=== PATIENT | female | born 1990 | race Caucasian/White ===

== ENCOUNTER → 2020-10-14 15:01 | Outpatient (CLI) | payer OTHER, SELFPAY ==
[2017-04-27 10:33] VITALS: BMI 28.6
[2020-10-14 17:59] LABS: hCG Titer Quant., Serum 7 mIU/mL (1-3)
== END ==
PROVIDERS: Referring Provider Obstetrics & Gynecology; Visit Provider Obstetrics & Gynecology
DX: O46.90 Antepartum hemorrhage, unspecified, unspecified trimester (principal); Z3A.00 Weeks of gestation of pregnancy not specified
CPT/HCPCS: 36415; 84702; 86850; 86900; 86901

== ENCOUNTER → 2020-10-16 15:19 | Outpatient (CLI) | payer OTHER, SELFPAY ==
[2017-04-27 10:33] VITALS: BMI 28.6
[2020-10-16 16:36] LABS: hCG Titer Quant., Serum 3 mIU/mL (1-3)
== END ==
PROVIDERS: Referring Provider Obstetrics & Gynecology; Visit Provider Obstetrics & Gynecology
DX: O46.90 Antepartum hemorrhage, unspecified, unspecified trimester (principal); Z3A.00 Weeks of gestation of pregnancy not specified
CPT/HCPCS: 36415; 84702

== ENCOUNTER → 2020-11-23 10:47 | Outpatient (CLI) | payer OTHER, SELFPAY ==
[2017-04-27 10:33] VITALS: BMI 28.6
[2020-11-23 12:12] LABS: hCG Titer Quant., Serum 10105 mIU/mL (1-3)
== END ==
PROVIDERS: Referring Provider Obstetrics & Gynecology; Visit Provider Obstetrics & Gynecology
DX: N91.2 Amenorrhea, unspecified (principal)
CPT/HCPCS: 36415; 84702

== ENCOUNTER → 2020-11-25 10:35 | Outpatient (CLI) | payer OTHER, SELFPAY ==
[2017-04-27 10:33] VITALS: BMI 28.6
[2020-11-25 12:38] LABS: hCG Titer Quant., Serum 14625 mIU/mL (1-3)
== END ==
PROVIDERS: Obstetrics & Gynecology; Referring Provider Obstetrics & Gynecology; Visit Provider Obstetrics & Gynecology
DX: O20.0 Threatened abortion (principal)
CPT/HCPCS: 36415; 84702

== ENCOUNTER → 2020-11-26 16:40 | Outpatient (CLI) | payer OTHER, SELFPAY ==
--- NOTE | 2020-11-26 16:45 | US_ITS ---
INDICATION: Early ultrasound . COMPARISON: None. TECHNIQUE: Transabdominal and transvaginal scanning was performed with grayscale and color Doppler imaging. FINDINGS: Uterus: Measures 9.7 x 6.3 x 5.6 cm. No uterine leiomyomas are identified. Endometrium: A feeding gestational sac is identified which appears to contain a pole and yolk sac the mean sac diameter is 1.68 cm corresponding to gestational age of 6 weeks 3 days. A pole is identified measuring 0.46 cm in size corresponding to a gestational age of 6 weeks 2 days and cardiac activity is identified of the 125 bpm. Right ovary measures 3.8 x 3.4 x 3 point cm. No right ovarian or adnexal masses are identified. Left ovary is not visualized. Free fluid: None. The gestational age based upon the patient''s given LMP is unknown. US/Init OB < 14Wks US IMPRESSION: A viable intrauterine gestation is identified with a gestational age of 6 weeks 2 days based upon crown-rump measurements, with an estimated due date of 07/20/2021 Electronically Signed: Michael Franco DO at 12:34 EDT Tel , Service support ,
== END ==
PROVIDERS: Referring Provider Obstetrics & Gynecology; Visit Provider Obstetrics & Gynecology
DX: O26.841 Uterine size-date discrepancy, first trimester (principal); N91.2 Amenorrhea, unspecified; Z3A.01 Less than 8 weeks gestation of pregnancy
CPT/HCPCS: 76801

== ENCOUNTER → 2021-01-01 09:49 | Outpatient (CLI) | payer OTHER, SELFPAY ==
[2021-01-01 10:20] LABS: Absolute Lymphocyte Count 2.12 X10^3/uL (0.83-4.51); Absolute Neutrophil Count 6.2 X10^3/uL (2.0-7.7); Basophil# 0.04 X10^3/uL; Basophil% 0.4 % (0-1); Eosinophil# 0.07 X10^3/uL; Eosinophils% 0.8 % (0-5); Hematocrit 39.4 % (37-47); Hemoglobin 13.6 g/dL (12.0-15.0); Lymphocyte # 2.12 X10^3/ul (0.83-4.51); Lymphocyte % 23.7 % (19-41); Mean Corp Hgb Conc 34.5 g/dL (32-36); Mean Corpuscular Hgb 29.8 pg (27.0-32.0); Mean Corpuscular Volume 86.2 fL (81-99); Monocyte# 0.45 X10^3/uL; NRBC Flagged by Analyzer 0 % (0-5); Neutrophil # 6.22 X10^3/uL (2.7-7.7); Neutrophil % 69.7 % (47-70); Platelet Count 284 K/mm3 (150-450); RBC Distribution Width CV 12.7 % (11.6-14.6); RBC Distribution Width SD 39.8 fl (35.1-43.9); Red Blood Count 4.57 M/mm3 (4.2-5.4); White Blood Count 8.9 K/mm3 (4.4-11.0)
[2021-01-01 11:05] LABS: NATERA MAILED SPECIMEN
[2021-01-01 11:50] LABS: HIV - WCH Non-Reactive (Nonreactive); Hepatitis B Surface Antigen Non-Reactive (Nonreactive); Hepatitis C Antibody Non-Reactive (Nonreactive); Rubella IgG Reactive (Nonreactive); Syphilis Antibodies Non-reactive
[2021-01-01 17:01] LABS: Amphetamine Urine VISTA NEGATIVE (<1000 ng/mL); Barbiturate Urine VISTA NEGATIVE (< 200 ng/mL); Benzodiazepine Urine VISTA NEGATIVE (< 200 ng/mL); Cocaine Urine VISTA NEGATIVE (< 300 ng/mL); Ecstacy Urine VISTA NEGATIVE (< 500 ng/mL); Methadone Urine VISTA NEGATIVE (< 300 ng/mL); PCP Urine VISTA NEGATIVE (< 25 ng/mL); THC Urine VISTA NEGATIVE (< 50 ng/mL); Vista UDS pH Range 6
[2021-01-04 03:07] LABS: Chlamydia By Nucleic Acid AMP Negative (Negative)
[2021-01-04 14:34] LABS: Gonococcus By Nucleic Acid AMP Negative (Negative)
[2021-01-10 20:30] LABS: HPV Reflexed? NOT INDICATED
== END ==
PROVIDERS: Referring Provider Nurse Practitioner Women's Health; Visit Provider Nurse Practitioner Women's Health
DX: Z34.81 Encounter for supervision of other normal pregnancy, first trimester (principal); Z31.430 Encounter of female for testing for genetic disease carrier status for procreative management
CPT/HCPCS: 36415; 80307; 85025; 86703; 86762; 86780; 86803; 86850; 86900; 86901; 87086; 87340; 87491; 87591; 88175; G0145

== ENCOUNTER → 2021-03-07 13:16 | Outpatient (CLI) | payer OTHER, SELFPAY ==
--- NOTE | 2021-03-07 13:21 | US_ITS ---
STUDY: SECOND AND THIRD TRIMESTER OBSTETRICAL ULTRASOUND REASON FOR EXAM: Female, 31 years old . Follow-up examination. LMP: 10/13/2020. TECHNIQUE: Transabdominal and Transvaginal TECHNICAL QUALITY: Adequate. PRIOR ULTRASOUND: Comparison is made with prior study dated 11/26/2020. FINDINGS: There is a single intrauterine fetus. The fetus is in a breech presentation. There is demonstrated cardiac activity with a heart rate of 162 bpm. There is a normal amniotic fluid volume. The largest amniotic fluid pocket measures 4.4 cm x 7 cm. The amniotic fluid index (ANN) is within normal limits. The placenta is posterior in location and is not low lying. There are Grade 1 placental changes. The cervix measures 4 cm in length. The bilateral adnexal regions are normal. BIOMETRY: BPD: 4.9 cm: 20 weeks, 6 days HC: 18.4 cm: 20 weeks, 5 days AC: 16.1 cm: 21 weeks, 1 days FL: 3.5 cm: 20 weeks, 0 days CI: 79% FL/BPD: 71% FL/HC: FL/AC: 22% HC/AC: 1.14 age by current US: 20 weeks, 6 days. CHUCHO by current US: 07/19/2021. Estimated weight: 400 grams, +/- 60 grams, 66 %. age by prior US: 20 weeks, 5 days. CHUCHO by prior US: 07/20/2021. Age by LMP: 20 weeks, 5 days. CHUCHO by LMP: 07/20/2021. ANATOMY: Gender: Cranium: Normal lateral ventricles. There is evidence of a left choroid plexus cyst measuring 4 mm. Normal cerebellum. Normal cisterna magna. Normal face, nose and lips. Chest: Normal 4-chamber heart. Abdomen/Pelvis: Normal diaphragm. Normal stomach. Normal abdominal wall. Normal cord insertion. Normal 3 vessel cord. Normal kidneys. Normal bladder. Spine: Normal cervical spine. Normal thoracic spine. Normal lumbar spine. Normal sacrum. Extremities: Normal bilateral upper extremities. Normal bilateral lower extremities. IMPRESSION: Single live intrauterine gestation with mean gestational age of 20 weeks and 5 days. The measurements obtained today following the normal expected range. 4 mm left choroid plexus cyst. Electronically Signed: Pranay Lubin MD at 8:19 EST , Service support , STUDY: FIRST TRIMESTER OBSTETRICAL ULTRASOUND REASON FOR EXAM: Female, 31 years old . Cervical length measurement. LMP: 10/13/2020. TECHNIQUE: Transvaginal TECHNICAL QUALITY: Adequate. PRIOR ULTRASOUND: None. FINDINGS: Cervical length measures 4 cm US/OB Anatomy Scan IMPRESSION: Cervical length measures 4 cm. Electronically Signed: Pranay Lubin MD at 8:20 EST , Service support ,
--- NOTE | 2021-03-07 13:21 | US_ITS ---
STUDY: SECOND AND THIRD TRIMESTER OBSTETRICAL ULTRASOUND REASON FOR EXAM: Female, 31 years old . Follow-up examination. LMP: 10/13/2020. TECHNIQUE: Transabdominal and Transvaginal TECHNICAL QUALITY: Adequate. PRIOR ULTRASOUND: Comparison is made with prior study dated 11/26/2020. FINDINGS: There is a single intrauterine fetus. The fetus is in a breech presentation. There is demonstrated cardiac activity with a heart rate of 162 bpm. There is a normal amniotic fluid volume. The largest amniotic fluid pocket measures 4.4 cm x 7 cm. The amniotic fluid index (ANN) is within normal limits. The placenta is posterior in location and is not low lying. There are Grade 1 placental changes. The cervix measures 4 cm in length. The bilateral adnexal regions are normal. BIOMETRY: BPD: 4.9 cm: 20 weeks, 6 days HC: 18.4 cm: 20 weeks, 5 days AC: 16.1 cm: 21 weeks, 1 days FL: 3.5 cm: 20 weeks, 0 days CI: 79% FL/BPD: 71% FL/HC: FL/AC: 22% HC/AC: 1.14 age by current US: 20 weeks, 6 days. CHUCHO by current US: 07/19/2021. Estimated weight: 400 grams, +/- 60 grams, 66 %. age by prior US: 20 weeks, 5 days. CHUCHO by prior US: 07/20/2021. Age by LMP: 20 weeks, 5 days. CHUCHO by LMP: 07/20/2021. ANATOMY: Gender: Cranium: Normal lateral ventricles. There is evidence of a left choroid plexus cyst measuring 4 mm. Normal cerebellum. Normal cisterna magna. Normal face, nose and lips. Chest: Normal 4-chamber heart. Abdomen/Pelvis: Normal diaphragm. Normal stomach. Normal abdominal wall. Normal cord insertion. Normal 3 vessel cord. Normal kidneys. Normal bladder. Spine: Normal cervical spine. Normal thoracic spine. Normal lumbar spine. Normal sacrum. Extremities: Normal bilateral upper extremities. Normal bilateral lower extremities. IMPRESSION: Single live intrauterine gestation with mean gestational age of 20 weeks and 5 days. The measurements obtained today following the normal expected range. 4 mm left choroid plexus cyst. Electronically Signed: Pranay Lubin MD at 8:19 EST , Service support , STUDY: FIRST TRIMESTER OBSTETRICAL ULTRASOUND REASON FOR EXAM: Female, 31 years old . Cervical length measurement. LMP: 10/13/2020. TECHNIQUE: Transvaginal TECHNICAL QUALITY: Adequate. PRIOR ULTRASOUND: None. FINDINGS: Cervical length measures 4 cm US/Transvaginal w/Preg US IMPRESSION: Cervical length measures 4 cm. Electronically Signed: Pranay Lubin MD at 8:20 EST , Service support ,
== END ==
PROVIDERS: Referring Provider Obstetrics & Gynecology; Visit Provider Obstetrics & Gynecology
DX: Z34.82 Encounter for supervision of other normal pregnancy, second trimester (principal); Z3A.19 19 weeks gestation of pregnancy
CPT/HCPCS: 76805; 76817

== ENCOUNTER 2021-05-09 14:19 | Outpatient (CLI) | payer OTHER, SELFPAY ==
[2021-05-09 15:35] LABS: Absolute Lymphocyte Count 2.46 X10^3/uL (0.83-4.51); Absolute Neutrophil Count 9.5 X10^3/uL (2.0-7.7); Basophil# 0.02 X10^3/uL; Basophil% 0.2 % (0-1); Eosinophils% 0.8 % (0-5); Hemoglobin 10.6 g/dL (12.0-15.0); Lymphocyte # 2.46 X10^3/ul (0.83-4.51); Lymphocyte % 19.4 % (19-41); Mean Corp Hgb Conc 32.1 g/dL (32-36); Mean Corpuscular Hgb 27.5 pg (27.0-32.0); Mean Corpuscular Volume 85.5 fL (81-99); Mean Platelet Vol. 11.5 fl (6.2-12.0); Monocyte# 0.57 X10^3/uL; Monocyte% 4.5 % (0-10); NRBC Flagged by Analyzer 0 % (0-5); Neutrophil # 9.48 X10^3/uL (2.7-7.7); Neutrophil % 74.7 % (47-70); Platelet Count 269 K/mm3 (150-450); RBC Distribution Width CV 12.9 % (11.6-14.6); RBC Distribution Width SD 39.6 fl (35.1-43.9); Red Blood Count 3.86 M/mm3 (4.2-5.4); White Blood Count 12.7 K/mm3 (4.4-11.0)
[2021-05-09 16:00] LABS: Glucose Challenge Gest 1H 50g 146 mg/dL (70-140)
== END 2021-05-09 23:59 | disposition short-term general hospital (02) ==
LOC: LAB 14:21
PROVIDERS: Referring Provider Obstetrics & Gynecology; Visit Provider Obstetrics & Gynecology
DX: Z34.92 Encounter for supervision of normal pregnancy, unspecified, second trimester (principal); Z13.1 Encounter for screening for diabetes mellitus
CPT/HCPCS: 36415; 82950; 85025; 86850; 86900; 86901

== ENCOUNTER 2021-05-16 06:50 | Outpatient (CLI) | payer OTHER, SELFPAY ==
[2021-05-16 07:29] LABS: Glucose GTT-Gestation. Fasting 95 mg/dL (<105)
[2021-05-16 08:29] LABS: Glucose GTT-Gestational 1 Hr 157 mg/dL (<190)
[2021-05-16 09:28] LABS: Glucose GTT-Gestational 2 Hr 132 mg/dL (<165)
[2021-05-16 11:17] LABS: Glucose GTT-Gestational 3 Hr 101 L (<145)
== END 2021-05-16 23:59 | disposition short-term general hospital (02) ==
LOC: LAB 06:51
PROVIDERS: Referring Provider Obstetrics & Gynecology; Visit Provider Obstetrics & Gynecology
DX: O99.810 Abnormal glucose complicating pregnancy (principal); Z3A.00 Weeks of gestation of pregnancy not specified
CPT/HCPCS: 36415; 82951; 82952

== ENCOUNTER 2021-06-27 17:03 | Outpatient (CLI) | payer OTHER, SELFPAY | END 2021-06-27 23:59 | disposition home or self-care (01) | PROVIDERS: Visit Provider Obstetrics & Gynecology | DX: Z34.80 Encounter for supervision of other normal pregnancy, unspecified trimester (principal) | CPT/HCPCS: 87081 ==

== ENCOUNTER 2021-07-07 07:49 | Outpatient (CLI) | payer OTHER, SELFPAY ==
--- NOTE | 2021-07-07 07:51 | US_ITS ---
STUDY: SECOND AND THIRD TRIMESTER OBSTETRICAL ULTRASOUND - LIMITED REASON FOR EXAM: Female, 31 years old. growth PRIOR ULTRASOUND: 03.07.. TECHNIQUE: Transabdominal TECHNICAL QUALITY: Adequate. FINDINGS: There is a single intrauterine fetus. The fetus is in a cephalic presentation. There is demonstrated cardiac activity with a heart rate of 152 bpm. There is a normal amniotic fluid volume. The largest amniotic fluid pocket measures 5.4 cm. The amniotic fluid index (ANN) is 14.6 cm. The placenta is fundal in location. There are Grade 2 placental changes. The cervix is obscured by overlying bowel gas and cannot be identified. . BIOMETRY: BPD: 91 mm: 36 weeks, 5 days HC: 332 mm: 37 weeks, 5 days AC: 367 mm: 40 weeks, 4 days FL: 75 mm: 38 weeks, 2 days CI: 79 FL/AC: 20 FL/BPD: 83 HC/AC: 0.9 age by current US: 38 weeks, 4 days. CHUCHO by current US: 3.24.22. Estimated weight: 3746 grams, +/- 554 grams, 87 %. Age by LMP: 38 weeks, 1 days. CHUCHO by LMP: 3.27.22. ANATOMY: study for growth only. US/OB Limited With Biometrics IMPRESSION: There is a single live intrauterine with a heart rate of 152 bpm. age by current US: 38 weeks, 4 days. CHUCHO by current US: 3.24.22. Estimated weight: 3746 grams, +/- 554 grams, 87 %. EFW is greater than 75%. Large for gestational age (LGA) should be considered. Electronically Signed: Adam Juarez MD at 15:36 EDT ,
== END 2021-07-07 23:59 | disposition home or self-care (01) ==
LOC: OPUS 07:49
PROVIDERS: Visit Provider Obstetrics & Gynecology
DX: O98.519 Other viral diseases complicating pregnancy, unspecified trimester (principal); U07.1 COVID-19
CPT/HCPCS: 76816

== ENCOUNTER 2021-07-19 17:45 | Inpatient (IN) | payer OTHER, SELFPAY ==
[2021-07-19] VITALS (35 sets, daily range): BP systolic 109–163; BP diastolic 64–87; PULSE 75–116; TEMP 36.2–36.6; O2SAT 97–100; BMI 34.2
--- NOTE | 2021-07-19 | IMM_PTH ---
PATIENT: MIGUEL LARA LOC: WP U#:[id number] AGE/SX: 31/F ROOM: WP006 RE07/19/[address]: Dr. Aisha Laguerre MD : 1990 BED: 1 DIS: 07/21/2021 SPEC #: [id number] RECD: 07/22/21 14:40 STATUS: NANDO REQ #: [id number] ANGEL: 07/19/21 00:[address]: Aisha Laguerre DEPT: IMMUNOHISTOCHEMISTRY RECD BY: Krysta Castro ENTERED: 07/22/21 14:41 SP TYPE: IMMUNO OTHR DR: No Primary Care Phys Tissues: Vulva, NOS Procedures: p16 (initial) KI-67 (add) P16 (add) PHYSICIAN & INSTITUTION [place] [id number] SPECIMEN INFORMATION: Tissue Source: Vulvar lesions Clinical Info: Two vulvar lesions Specimen Number: [id number] #1 & 2 CPT code: 46452, 77940 x3 METHODOLOGY: Deparaffinized sections of prefer/formalin-fixed tissue or PAP/DQ stained slides are incubated with monoclonal/polyclonal antibodies/oligonucleotide probes. Localization is made via biotin free immunoperoxidase method. Appropriate controls are performed and reacted as expected. Results on target cell population are indicated in the following table: RESULTS: ANTIBODY / CLONE RESULT Block 1 P16 (E6H4) positive, focal, patchy Ki-67 (30-9) positive, low Block 2 P16 (E6H4) positive, focal, patchy Ki-67 (30-9) positive, low These tests were developed and their performance characteristics determined by [facility]. They may not have been cleared or approved by the U.S. Food and Drug Administration. The FDA has determined that such clearance or approval is not necessary. The above immunohistochemical/dualISH markers are ordered and reviewed by the Pathologist. INTERPRETATION: Vulvar lesions, biopsy: Consistent with condyloma acuminatum. AM:quinn 07/23/2021
[2021-07-19] MEDS: Lactated Ringers 1,000 ML 50 ML IV (18:00)
[2021-07-19] MEDS: Lactated Ringers 500 ML 999 ML IV ×3 (18:15→22:45)
[2021-07-19 18:20] LABS: Absolute Lymphocyte Count 1.96 X10^3/uL (0.83-4.51); Absolute Neutrophil Count 8.5 X10^3/uL (2.0-7.7); Basophil# 0.01 X10^3/uL; Basophil% 0.1 % (0-1); Eosinophil# 0.04 X10^3/uL; Eosinophils% 0.4 % (0-5); Hematocrit 31.7 % (37-47); Hemoglobin 10.2 g/dL (12.0-15.0); Lymphocyte # 1.96 X10^3/ul (0.83-4.51); Lymphocyte % 17.6 % (19-41); Mean Corp Hgb Conc 32.2 g/dL (32-36); Mean Corpuscular Hgb 24.5 pg (27.0-32.0); Mean Platelet Vol. 12.8 fl (6.2-12.0); Monocyte# 0.56 X10^3/uL; NRBC Flagged by Analyzer 0 % (0-5); Neutrophil # 8.53 X10^3/uL (2.7-7.7); Neutrophil % 76.5 % (47-70); Platelet Count 241 K/mm3 (150-450); RBC Distribution Width CV 14.6 % (11.6-14.6); RBC Distribution Width SD 39.8 fl (35.1-43.9); Red Blood Count 4.17 M/mm3 (4.2-5.4); White Blood Count 11.2 K/mm3 (4.4-11.0)
[2021-07-19] MEDS: fentaNYL-bupivacaine (epidural) 100 ML BAG EPIDURAL (19:36)
[2021-07-19] MEDS: 0.9% Saline Lock 10 ML Syringe IV (20:45)
[2021-07-19] MEDS: Ondansetron 4 MG/2 ML Vial IV (20:45)
[2021-07-19] MEDS: Amnioinfusion- 0.9% NS 1,000 ML IV.SOLN. INTRA-UTER (21:14)
--- NOTE | 2021-07-19 23:00 | VUL_PTH ---
PATIENT: MIGUEL LARA LOC: WP U#:[id number] AGE/SX: 31/F ROOM: WP006 RE07/19/[address]: Dr. Aisha Laguerre MD : 1990 BED: 1 DIS: 07/21/2021 SPEC #: [id number] RECD: 07/20/21 00:33 STATUS: NANDO AKASH #: [id number] ANGEL: 07/19/21 23:[address]: Aisha Laguerre DEPT: SURGICAL PATHOLOGY RECD BY: Clinton Torres ENTERED: 07/21/21 08:33 SP TYPE: VULVA BX OTHR DR: No Primary Care Phys Tissues: Vulva, NOS Procedures: Surgery Specimen Level IV HEADER OPERATION: Lesion removal PRE-OP DIAGNOSIS: 5 mm vulvar lesion and 2 cm vulvar lesion TISSUE SUBMITTED: 5 mm vulvar lesion and 2 cm vulvar lesion MICROSCOPIC DIAGNOSIS Vulvar lesions, biopsy: Consistent with fragments of condyloma acuminatum. See comment. AM:quinn 07/22/2021 COMMENT Results from immunohistochemistry ([id number]) for surrogate HPV marker (p16) will be reported separately. Case has been reviewed in consultation with Dr. Koroma who concurs with the above diagnosis. IDC:ABRAHAM MICROSCOPIC DESCRIPTION Slides are reviewed. GROSS DESCRIPTION Received is one container labeled with the patient's name and not further designated. The specimen consists of two polypoid pieces of maynard-brown skin measuring 1.5 x 1.2 x 0.5 cm and 1.2 x 1.2 x 0.6 cm. Both pieces are inked, serially sectioned and submitted entirely in two cassettes with each cassette containing one piece. / ABRAHAM:quinn 07/21/2021 TC:1 CPT: 67990
[2021-07-19] MEDS: Oxytocin 30 units/NS 500 ml 30 UNITS/500 ML IV.SOLN 334 UNITS IV (23:13)
--- NOTE | 2021-07-19 23:21 | HP.PCM.OB_ITS ---
HPI - General General Date of Admission: 07/19/21 HPI Narrative MIGUEL LARA, is a 31 F who presents IAL with SROM regualr ctx clear fluid Maternal Data Information CHUCHO Calculator Estimated Delivery Date Method Current WG Current Estimate 07/20/21 Ultrasound #1 39w 6d PFSH PFSH Medical History Choroid plexus cyst Lab test positive for detection of COVID-19 virus Laceration of right index finger Laceration of right middle finger Laceration of right thumb Home Medications vit,[id number] 1 tab PO DAILY 04/15/14 [History Last Taken 01/09/16] Allergy/AdvReac Type Severity Reaction Status Date / Time No Known Allergies Allergy Verified 07/11/21 14:15 Family History Mother Hypertension Surgical History History of appendectomy Hx of tonsillectomy Social History adopted: No household members: family number of children: 3 current occupational status: employed current occupation: [employer] pets and animals: No Smoking Status: Former smoker alcohol intake: current details: Social substance use type: does not use seatbelt use: always do you feel safe at home: Yes additional social history: - Trip ([place]) History 5 Elective abortions Hx Para 3 Spontaneous abortions 1 Hx # Term Pregnancies Ectopic pregnancies Hx # Pregnancies Multiple births # of living children 3 Past Pregnancies Del. Date Name GA/Weeks Outcome Route Bth Weight Gen Labor Lgth Anesthesia Del Locatn Provider FOB 08/20/11 Anthony 40 live - full term Female epidural [facility] 05/11/14 Jolene 39 live - full term Female epidural [facility] Sharif 01/09/16 Jose L 40 live - full term Male martinur al [facility] Chris Delivery Date: 08/20/11 no complications Ag[facility]a Glez Delivery Date: 05/11/14 no complication Agueda Glez Delivery Date: 01/09/16 no complications Agueda Glez Visit Details Expected Delivery Route/Plan Labor Preferences- labor support person: trip labor intervention preferences: open pain management options preferred: epidural cut cord/dad catch: no : yes PP control planned: sterilized discussed possible routes of delivery and associated risks: special requests: [] Plans Covid status: discussed risks vs. benefits of vaccination, employer mandating vaccination, patient plans to receive once closer to 20 weeks Flu vaccine: declined Tdap vaccine:given Rhogam:na LARC form signed: declined movement and labor precautions reviewed. Problem list reviewed and updated with the most current plan of care details and appropriate orders placed. Relevant counseling for the gestational age provided. Continue routine care and follow up unless otherwise noted in visit notes/problem list details OB Flowsheet Initial Weight: Not Recorded Date -?-?-?-?--?-?-?-?-?-?-?-?- EGA Weight BP Urine Prot -?-?-?-?-?-?-?-?-?-?-?-?- Glucose FHR FuHt Pres Dilation -?-?-?-?-?-?-?-?-?-?-?-?- Effaced St Visit Note 01/01/21 -?-?-?-?-?-?-?-?-?-?-?-?- 11w 3d 182 lb 4 oz 118/80 -?-?-?-?-?-?-?-?-?-?-?-?- 153 -?-?-?-?-?-?-?-?-?-?-?-?- MH-NOB. US per S M: consistent with formal US 07/20/21 01/31/21 -?-?-?-?-?-?-?-?-?-?-?-?- 15w 5d 187 lb 120/80 Negative -?-?-?-?-?-?-?-?-?-?-?-?- Negative 145 -?-?-?-?-?-?-?-?-?-?-?-?- GP - no cramping or bleeding. PRR. Anatomy ordered. Discussed COVID vaccine as employer mandating - patient planning to receive closer to 20 weeks. 02/28/21 -?-?-?-?-?-?-?-?-?-?-?-?- 19w 5d 192 lb -?-?-?-?-?-?-?-?-?-?-?-?- 140 -?-?-?-?-?-?-?-?-?-?-?-?- JV/SM- no lof, v aginal bleeding, or dec fm. No complaints, anatomy scan scheduled. 03/28/21 -?-?-?-?-?-?-?-?-?-?-?-?- 23w 5d 194 lb 4 oz 132/70 Nega tive -?-?-?-?-?-?-?-?-?-?-?-?- Negative 145 24 -?-?-?-?-?-?-?-?-?-?-?-?- SM- no vb lof go od fm no regular ctx 04/24/21 -?-?-?-?-?-?-?-?-?-?-?-?- 27w 4d 196 lb 6 oz 110/80 Nega tive -?-?-?-?-?-?-?-?-?-?-?-?- Negative 140 27 -?-?-?-?-?-?-?-?-?-?-?-?- SM- no vb lof go od fm no reuglar ctx. plan cbc gct next visit. 05/09/21 -?-?-?-?-?-?-?-?-?-?-?-?- 29w 5d 199 lb 2 oz 120/80 120/80 Negative -?-?-?-?-?-?-?-?-?-?-?--?- 1000 g/dL 140 31 -?-?-?-?-?-?-?-?-?-?-?-?- SM- no vb lof go od fm no regular ctx rhogam today 06/06/21 -?-?-?-?-?-?-?-?-?-?-?-?- 33w 5d 203 lb 120/80 Negative -?-?-?-?-?-?-?-?-?-?-?-?- Negative 145 33 -?-?-?-?-?-?-?-?-?-?-?-?- SM- no vb lof go od fm no regular ctx 06/20/21 -?-?-?-?-?-?-?-?-?-?-?-?- 35w 5d 207 lb 4 oz 130/88 Nega tive -?-?-?-?-?-?-?-?-?-?-?-?- Negative -?-?-?-?-?-?-?-?-?-?-?-?- 06/27/21 -?-?-?-?-?-?-?-?-?-?-?-?- 36w 5d 206 lb 2 oz 110/80 Trac e -?-?-?-?-?-?-?-?-?-?-?-?- Negative 140 38 Cephalic 0 -?-?-?-?-?-?-?-?-?-?-?-?- 50 -3 JV- no lof , vaginal bleeding, or dec fm. GBS collected 07/02/21 -?-?-?-?-?-?-?-?-?-?-?-?- 37w 3d 205 lb 8 oz 116/82 Nega tive -?-?-?-?-?-?-?-?-?-?-?-?- Negative 151 38 Cephalic 0 -?-?-?-?-?-?-?-?-?-?-?-?- 50 -2 JV- no lof ,vaginal bleeding, or dec fm. growth scan ordered for this week due to h/o covid in . 07/11/21 -?-?-?-?-?-?-?-?-?-?-?-?- 38w 5d 209 lb 118/80 Negative -?-?-?-?-?-?-?-?-?-?-?-?- Negative 150 40 1 -?-?-?-?-?-?-?-?-?-?-?--?- 50 -2 SM- no vb lof good fm nor euglar ctx 03/24/22 -?-?-?-?-?-?-?-?-?-?-?-?- 39w 4d 211 lb 104/74 104/74 Negative -?-?-?-?-?-?-?-?-?-?-?-?- Negative 140 39 2 -?-?-?-?-?-?-?-?-?-?-?-?- 60 -2 SM- no vb lof good fm no regular ctx membranes swept 07/19/21 -?-?-?-?-?-?-?-?-?-?-?-?- 39w 6d 206 lb 2 oz 163/83 121/77 121/70 136/79 126/79 120/64 125/75 130/77 116/70 121/72 111/66 120/74 111/66 120/87 109/71 -?-?-?-?-?-?-?-?-?-?-?-?- -?-?-?-?-?-?-?-?-?-?-?-?- NST FHR Rate Baby A Baseline: 140 Variability:: Moderate Accelerations:: 15 x 15 Decelerations:: None NST Reactive:: Yes FHR Category:: Category I Uterine Activity:: q3-5 ROS Constitutional Constitutional: Reports systems reviewed and no addt'l complaints, except as documented ENT HEENT: Reports systems reviewed and no addt'l complaints, except as documented Cardiovascular Cardiovascular: Reports systems reviewed and no addt'l complaints, except as documented Respiratory/Chest Respiratory/Chest: Reports systems reviewed and no addt'l complaints, except as documented Gastrointestinal Gastrointestinal: Reports systems reviewed and no addt'l complaints, except as documented and nausea; Denies abdominal pain Genitourinary Genitourinary: Reports systems reviewed and no addt'l complaints, except as documented, contractions Details: present and frequency (regular ) and movement Details: present Musculoskeletal Musculoskeletal: Reports systems reviewed and no addt'l complaints, except as documented Integumentary Integumentary: Reports as per HPI Neurologic Neurologic: Reports systems reviewed and no addt'l complaints, except as documented Endocrine Endocrinology: Reports systems reviewed and no addt'l complaints, except as documented Vital Signs Vital Signs Vital Signs: 07/19/21 18:30 07/19/21 18:32 07/19/21 19:10 Temperature 97.9 F 97.6 F L Temperature Source Temporal Temporal Pulse Rate 94 86 Blood Pressure 163/83 H 121/77 H BP Systolic 163 121 BP Diastolic 83 77 Pulse Ox 99 07/19/21 19:11 07/19/21 19:16 07/19/21 19:21 Temperature Temperature Source Pulse Rate 97 98 99 Blood Pressure 121/70 H BP Systolic 121 BP Diastolic 70 Pulse Ox 100 100 99 07/19/21 19:24 07/19/21 19:26 07/19/21 19:28 Temperature Temperature Source Pulse Rate 110 H 97 102 H Blood Pressure 136/79 H 126/79 H BP Systolic 136 126 BP Diastolic 79 79 Pulse Ox 100 07/19/21 19:31 07/19/21 19:33 07/19/21 19:36 Temperature Temperature Source Pulse Rate 101 H 100 96 Blood Pressure 120/64 BP Systolic 120 BP Diastolic 64 Pulse Ox 97 98 07/19/21 19:37 07/19/21 19:39 07/19/21 19:41 Temperature 97.6 F L Temperature Source Temporal Pulse Rate 101 H 102 H Blood Pressure 125/75 H BP Systolic 125 BP Diastolic 75 Pulse Ox 100 07/19/21 19:43 07/19/21 19:46 07/19/21 19:48 Temperature Temperature Source Pulse Rate 104 H 101 H 99 Blood Pressure 130/77 H 116/70 BP Systolic 130 116 BP Diastolic 77 70 Pulse Ox 99 07/19/21 19:51 07/19/21 19:56 07/19/21 19:59 Temperature Temperature Source Pulse Rate 97 95 93 Blood Pressure 121/72 H BP Systolic 121 BP Diastolic 72 Pulse Ox 100 100 07/19/21 20:01 07/19/21 20:03 07/19/21 20:06 Temperature Temperature Source Pulse Rate 80 75 94 Blood Pressure 111/66 BP Systolic 111 BP Diastolic 66 Pulse Ox 100 100 07/19/21 20:11 07/19/21 20:16 07/19/21 20:21 Temperature Temperature Source Pulse Rate 89 92 81 Blood Pressure BP Systolic BP Diastolic Pulse Ox 100 100 100 07/19/21 20:26 07/19/21 20:31 07/19/21 20:35 Temperature Temperature Source Pulse Rate 87 107 H 75 Blood Pressure 120/74 BP Systolic 120 BP Diastolic 74 Pulse Ox 100 100 07/19/21 21:47 07/19/21 22:19 07/19/21 23:17 Temperature 97.7 F L Temperature Source Temporal Pulse Rate 90 116 H 97 Blood Pressure 111/66 120/87 H 109/71 BP Systolic 111 120 109 BP Diastolic 66 87 71 Pulse Ox Weight Weight: 206 lb 2 oz Body Mass Index (BMI) 34.2 Physical Exam Const alert, oriented x3 and healthy appearing Constitutional Narrative: uncomfortable with contractions HEENT normocephalic and moist oral mucous membranes Head and Scalp: atraumatic Neck full ROM, no lymphadenopathy, supple and thyroid normal General: trachea midline Thyroid: thyroid normal Lymph Lymphatic: no lymphadenopathy noted Chest inspection of chest normal Resp normal respiratory effort Cardio regular rate GI normal to inspection, nondistended, normoactive bowel sounds, soft to palpation and non-tender Inspection: gravid external exam normal Bimanual Exam - Vag & Uterus: uterus non-tender Manual OB Exam: estimated gestational size appropriate, presentation cephalic, dilated, effaced and station Extremity normal to inspection General Extremity: Negative for edema Skin no rashes or lesions noted Neuro deep tendon reflexes 2+ bilaterally Motor Exam: strength 5/5 throughout and clonus absent Psych mental status grossly normal Labs Labs Labs: Blood Type O NEGATIVE Antibody Screen NEGATIVE Hct 31.7 % (37-47) L Hgb 10.2 g/dL (12.0-15.0) L Obstetrics US Syphilis Total Ab Non-reactive Rubella IgG Antibody Reactive (Nonreactive) Hep Bs Antigen Non-Reactive (Nonreactive) Chlamydia DNA (JAYE) Negative (Negative) Neisseria gonorrhoeae DNA (JAYE) Negative (Negative) HIV 1&2 Antibody Non-Reactive (Nonreactive) Glucose 1 Hr 50 gm 146 mg/dL (70-140) H Rhogam given: No Assessment & Plan (1) Abnormal glucose affecting : COMMENT: 3hr GTT needed (2) Choroid plexus cyst: COMMENT: nl genetics no fu indicated (3) Rh negative status during : QUALIFIERS: Trimester: first trimester Qualified Code(s): O26.891 - Other specified related conditions, first trimester; Z67.91 - Unspecified blood type, Rh negative COMMENT: O neg; Rhogam PRN and at 28 weeks (4) Supervision of other normal : COMMENT: PRR CHUCHO: 07/20/21 girl PC: Jolene Cruz Axel Spouse: Trip (5) H/O depression, currently : COMMENT: PPD with first (6) : QUALIFIERS: Weeks of gestation: 39 weeks Qualified Code(s): Z3A.39 - 39 weeks gestation of COMMENT: anatomy nl, carrier neg. , NIPT low risk. declined afp. GBS neg (7) SROM (spontaneous rupture of membranes): (8) Active labor at term: COMMENT: admit, epidural
--- NOTE | 2021-07-19 23:23 | OP.PCM_ITS ---
Assessment & Plan (1) Active labor at term: COMMENT: admit, epidural (2) SROM (spontaneous rupture of membranes): (3) Abnormal glucose affecting : COMMENT: 3hr GTT needed (4) Choroid plexus cyst: COMMENT: nl genetics no fu indicated (5) Rh negative status during : QUALIFIERS: Trimester: first trimester Qualified Code(s): O26.891 - Other specified related conditions, first trimester; Z67.91 - Unspecified blood type, Rh negative COMMENT: O neg; Rhogam PRN and at 28 weeks (6) Supervision of other normal : COMMENT: PRR CHUCHO: 07/20/21 girl PC: Jolene Cruz Axel Spouse: Trip (7) H/O depression, currently : COMMENT: PPD with first (8) : QUALIFIERS: Weeks of gestation: 39 weeks Qualified Code(s): Z3A.39 - 39 weeks gestation of COMMENT: anatomy nl, carrier neg. , NIPT low risk. declined afp. GBS neg (9) Vaginal delivery: COMMENT: SM girl Samina? 39 IAL SROM (10) Vulvar lesion: COMMENT: removed at delivery Maternal Data Information CHUCHO Calculator Estimated Delivery Date Method Current WG Current Estimate 07/20/21 Ultrasound #1 39w 6d Vaginal Delivery Operative Information Date of Procedure: 07/19/21 Pre-Operative Diagnosis: IAL Post-Operative Diagnosis: same Surgery / Procedure Performed: Spontaneous Vaginal Delivery and - (vulvar removal lesions) Type of Anesthesia: Epidural Special Medications: none Estimated Blood Loss: 100 Fluids Replaced: crystalloid Findings Description of Procedure: Patient began pushing and delivered the head in the CHIDI presentation. The head was delivered atraumatically . The anterior and posterior shoulders delivered without complication followed by the rest of the and the was placed on the maternal abdomen. Delayed cord clamping was employed for approximately 60 seconds. Cord was clamped and cut and gentle traction was applied to the cord and the placenta delivered spontaneously immediately following it was noted to be intact with three-vessel cord. The perineum and vagina were inspected and noted to have no laceration. EBL was 100 cc. right 5 mm vulvar lesion and two 2 cm vulvar lesions were prepped with betadine and then cut off at the base and then silver nitrate applied, interrupted 3-0 vicryl rapide sutures used to close without complication. Patient and infant tolerated delivery well. Presentation: CHIDI Amniotic Membrane Rupture Type: Spontaneous Amniotic Fluid Description: Clear Placental Delivery Description: Spontaneous Placenta Disposition: [facility] Cord Vessel Description: 3 Vessels Cord Entanglement: None Delayed Cord Clamping: Yes Post Vaginal Delivery Medications Given After Delivery: IV Pitocin Episiotomy Description: None Laceration: None Complication Complications: None Multi Select Codes Integumentary Integumentary CPT Codes: 28933 Trim skin lesions 2 to 4 Urinary/Genital Urinary/Genital CPT Codes: 01272 Vaginal Delivery [facility]
--- NOTE | 2021-07-19 23:28 | PCM.DC ---
Discharge Instructions Diet Discharge Diet: No restrictions Activity Discharge Activity: Return to Normal Activity, May Not Drive (while taking narcotic pain medications.) and May Shower May resume sexual activity in: 4-6 weeks Dressing / Incision Call your doctor if your incision/area has: Continuous Slow Oozing, Sudden Increased Bleeding, Increased Pain/ Swelling, Increased Redness and Foul Smelling Discharge Follow Up Care Please Follow Up With: Aisha Laguerre MD When: Call [phone] to make an appointment with your doctor in 6 weeks. If you had elevated blood pressure or 4th degree laceration, you will need to be seen in 2 weeks. Test Results: Test results from this visit will be discussed in further detail at your follow-up appointment, if applicable. Discharge Plan Admission Admit Date/Time: 07/19/21 17:45 Attending Provider: Aisha Laguerre Primary Care Provider: Care Physician,Haydee Primary Discharge Orders/Prescriptions Prescriptions: No Action vit,[id number] 1 TABLET tablet 1 tab PO DAILY RF: 0 Referrals / Follow Up: Care Physician,No Primary [Primary Care Provider] - Disposition Disposition (needs filled in before D/C Order can be placed): Home, Self Care
[2021-07-20] VITALS (17 sets, daily range): BP systolic 113–129; BP diastolic 66–84; PULSE 81–247; RESP 16–18; TEMP 36.1–37.1; O2SAT 81–99
[2021-07-20] MEDS: Acetaminophen 500 MG Tablet 1000 MG PO (09:06)
--- NOTE | 2021-07-20 12:51 | PCM.PN.OB ---
Subjective Subjective Patient doing well without complaints. Tolerating PO. Ambulating and voiding without difficulty. infant feeding well. Denies chest pain, shortness of breath, calf pain/swelling, fevers, chills, lightheadedness. Objective Data Objective Data Vital Signs: Vital Signs Temp Pulse Resp BP Pulse Ox 98.2 F 82 16 119/74 98 07/20/21 12:16 07/20/21 12:16 07/20/21 12:16 07/20/21 12:16 07/20/21 12:16 Oxygen Delivery Method Room Air Weight: 206 lb 2 oz Body Mass Index (BMI) 34.2 Intake & Output: Intake and Output for Last 24 Hours 07/18/21 07/19/21 07/20/21 23:59 23:59 23:59 Intake Total 2066.58 / 2066.58 1133 / 1133 Output Total 1300 / 1300 Balance 2066.58 / 2066.58 -167 / -167 Lab / Micro Data Result Diagrams: 07/19/21 18:00 Labs: Laboratory Results - last 24 hr 07/19/21 17:47: Blood Type O NEGATIVE, Antibody Screen NEGATIVE 07/19/21 18:00: WBC 11.2 H, RBC 4.17 L, Hgb 10.2 L, Hct 31.7 L, MCV 76.0 L, MCH 24.5 L, MCHC 32.2, RDW Std Deviation 39.8, RDW Coeff of Donaldo 14.6, Plt Count 241, MPV 12.8 H, Immature Gran % (Auto) 0.400, Neut % (Auto) 76.5 H, Lymph % (Auto) 17.6 L, Treasure % (Auto) 5.0, Eos % (Auto) 0.4, Baso % (Auto) 0.1, Absolute Neuts (auto) 8.5 H, Absolute Lymphs (auto) 1.96, Nucleated RBC % 0 Micro: Microbiology 07/19/21 18:00 Nasal Secretion SARS-CoV-2 Antigen (Rapid) - Final ROS Constitutional Constitutional: Reports systems reviewed and no addt'l complaints, except as documented Cardiovascular Cardiovascular: Reports systems reviewed and no addt'l complaints, except as documented Respiratory/Chest Respiratory/Chest: Reports systems reviewed and no addt'l complaints, except as documented Gastrointestinal Gastrointestinal: Reports systems reviewed and no addt'l complaints, except as documented Physical Exam Const alert, oriented x3 and no apparent distress HEENT Head and Scalp: atraumatic Resp normal respiratory effort GI soft to palpation and non-tender Bimanual Exam - Vag & Uterus: uterus non-tender Uterus Palpation: uterus fundus firm (below Umbilicus) Assessment & Plan (1) Vaginal delivery: COMMENT: SM girl Steph 39 IAL SROM (2) Rh negative status during : QUALIFIERS: Trimester: first trimester Qualified Code(s): O26.891 - Other specified related conditions, first trimester; Z67.91 - Unspecified blood type, Rh negative COMMENT: O neg; Rhogam PRN and at 28 weeks PLAN: s/p PPD # 1 1. routine post delivery care 2. breast feeding- support given 3. rh neg- rhogam PRN 4. rubella immune
[2021-07-20] MEDS: Senna/Docusate Sodium 1 Tablet PO (17:38)
[2021-07-21 02:42] VITALS: BP 107/65; PULSE 71; RESP 18; TEMP 36.7; O2SAT 97
[2021-07-21] MEDS: Acetaminophen 500 MG Tablet 1000 MG PO (03:40)
--- NOTE | 2021-07-21 07:35 | NURSING ---
bedside report given to Robel Francois RN who is assuming care of pt at this time
--- NOTE | 2021-07-21 07:44 | PCM.PN.OB ---
Subjective Subjective Patient doing well without complaints. Tolerating PO. Ambulating and voiding without difficulty. feeding well. Denies chest pain, shortness of breath, calf pain/swelling, fevers, chills, lightheadedness. Objective Data Objective Data Vital Signs: Vital Signs Temp Pulse Resp BP Pulse Ox 98.1 F 71 18 107/65 97 07/21/21 02:42 07/21/21 02:42 07/21/21 02:42 07/21/21 02:42 07/21/21 02:42 Oxygen Delivery Method Room Air Weight: 206 lb 2 oz Body Mass Index (BMI) 34.2 Intake & Output: Intake and Output for Last 24 Hours 07/19/21 07/20/21 07/21/21 23:59 23:59 23:59 Intake Total 2066.58 / 2066.58 1133 / 1133 Output Total 1300 / 1300 Balance 2066.58 / 2067.58 -167 / -167 Lab / Micro Data Result Diagrams: 07/19/21 18:00 Micro: Microbiology 07/19/21 18:00 Nasal Secretion SARS-CoV-2 Antigen (Rapid) - Final ROS Constitutional Constitutional: Reports systems reviewed and no addt'l complaints, except as documented Cardiovascular Cardiovascular: Reports systems reviewed and no addt'l complaints, except as documented Respiratory/Chest Respiratory/Chest: Reports systems reviewed and no addt'l complaints, except as documented Gastrointestinal Gastrointestinal: Reports systems reviewed and no addt'l complaints, except as documented Physical Exam Const alert, oriented x3 and no apparent distress HEENT Head and Scalp: atraumatic Resp normal respiratory effort GI soft to palpation and non-tender Bimanual Exam - Vag & Uterus: uterus non-tender Uterus Palpation: uterus fundus firm (below Umbilicus) Assessment & Plan (1) Rh negative status during : QUALIFIERS: Trimester: first trimester Qualified Code(s): O26.891 - Other specified related conditions, first trimester; Z67.91 - Unspecified blood type, Rh negative COMMENT: O neg; Rhogam PRN and at 28 weeks (2) Vaginal delivery: COMMENT: SM girl Steph 39 IAL SROM PLAN: s/p PPD # 1 1. routine post delivery care 2. breast feeding- support given 3. rh positive 4. rubella immune
[2021-07-21 08:19] VITALS: BP 116/78; PULSE 77; RESP 16; TEMP 36.2; O2SAT 97
[2021-07-21] MEDS: Senna/Docusate Sodium 1 Tablet PO (08:27)
[2021-07-21] MEDS: Naproxen 500 MG Tablet PO (09:06)
[2021-07-23 14:44] LABS: Pathology Specimen OB SEE PATHOLOGY REPORT
== END 2021-07-21 09:50 | disposition home or self-care (01) | DRG 807 ==
LOC: WP 17:55 → WPOUT 07-21 15:08
PROVIDERS: Admitting Provider Obstetrics & Gynecology; Visit Provider Obstetrics & Gynecology
DX: O98.32 Other infections with a predominantly sexual mode of transmission complicating childbirth (principal); Z37.0 Single live birth; A63.0 Anogenital (venereal) warts; K21.9 Gastro-esophageal reflux disease without esophagitis; O99.62 Diseases of the digestive system complicating childbirth; Z20.822 Contact with and (suspected) exposure to COVID-19; Z87.891 Personal history of nicotine dependence; Z86.16 Personal history of COVID-19; Z3A.39 39 weeks gestation of pregnancy
CPT/HCPCS: 59025; 59050; 85025; 86850; 86900; 86901; 87426; 88305; 88341; 88342; 99218; J7030; J7120; A4216; G0378; J2405